=== PATIENT | female | born 1970 | race Caucasian/White ===

== ENCOUNTER → 2024-09-27 11:01 | Outpatient (REF) | payer BC, SELFPAY | LOC: HWWDC 11:01 | PROVIDERS: ATTENDING PHYSICIAN Family Medicine; REFERRING PHYSICIAN Obstetrics & Gynecology | DX: Z12.13 Encounter for screening for malignant neoplasm of small intestine (principal) | CPT/HCPCS: 77063; 77067 ==

== ENCOUNTER 2025-06-12 06:33 | Day surgery (SDC) | payer BC, SELFPAY | END 2025-06-12 11:15 | disposition home or self-care (01) | LOC: GI 06:33 | PROVIDERS: ATTENDING PHYSICIAN Internal Medicine Gastroenterology | DX: D13.0 Benign neoplasm of esophagus (principal); K22.89 Other specified disease of esophagus; K44.9 Diaphragmatic hernia without obstruction or gangrene; R12 Heartburn | CPT/HCPCS: 43239; 88305 ==